=== PATIENT | female | born 1990 | race Caucasian/White ===

== ENCOUNTER 2016-05-01 19:40 | Emergency (ER) | payer OTHER ==
[~2016-05-01] VITALS: Ht 157.5 cm; Wt 72.1 kg
[~2016-05-01 19:40] MED LIST: IRON PO; PRENATAL1 EACH PO
[2016-05-02] MEDS ORDERED: PROGESTERONE200 MG PO (00:51)
[2016-05-02 01:05] VITALS: BP 110/71
== END 2016-05-02 01:06 | disposition home or self-care (01) ==
LOC: EME 19:40 → RME 19:40
DX: O20.0 Threatened abortion (principal); O99.331 Smoking (tobacco) complicating pregnancy, first trimester; F17.200 Nicotine dependence, unspecified, uncomplicated; Z3A.01 Less than 8 weeks gestation of pregnancy
CPT/HCPCS: 76801; 84702; 99281; 99283

== ENCOUNTER 2016-06-15 13:20 | Emergency (ER) | payer OTHER ==
[~2016-06-15] VITALS: Ht 157.5 cm; Wt 72.2 kg
[~2016-06-15 13:20] MED LIST changes: +PROGESTERONE200 MG PO
[2016-06-15 13:44] VITALS: BP 96/75
[2016-06-15 14:24] LABS: ADD MIUA? YES; BILIRUBIN NEGATIVE; BLOOD SMALL; COLOR YELLOW ((YELLOW)); GLUCOSE (STRIP) NEGATIVE; KETONES NEGATIVE; LEUKOCYTES NEGATIVE; NITRITE NEGATIVE; PROTEIN (STRIP) NEGATIVE; SPECIFIC GRAVITY 1.013 (1.000-1.030); UROBILINOGEN 0.2 MG/DL (0.2-1.0)
[2016-06-15 14:38] LABS: HEMATOCRIT 35.6 % (36.0-46.0); MCH 30.6 PG (29.0-34.0); MCHC 34.8 G/DL (30.0-36.0); MCV 87.9 FL (83-99); MEAN PLAT.VOLUME 9.2 uM^3 (9.5-12.4); PLATELET COUNT 303 K/uL (156-360); RBC DIS.WIDTH-CV 13.2 % (11.8-14.6); RBC DIS.WIDTH-SD 41.3 % (39-53); RED BLOOD COUNT 4.05 M/uL (3.80-5.20)
[2016-06-15 14:51] LABS: CHLORIDE 104 mEq/L (99-109); POTASSIUM 4.1 mEq/L (3.7-5.4); SODIUM 135 mEq/L (136-147)
[2016-06-15 14:53] LABS: GLUCOSE 78 mg/dL (70-99)
[2016-06-15 14:54] LABS: ANION GAP 7 MEQ/L (2-14)
[2016-06-15 14:55] LABS: TOTAL BILIRUBIN 0.5 mg/dL (0.0-1.0)
[2016-06-15 14:56] LABS: ALKALINE PHOSPHATASE 46 IU/L (3-129)
[2016-06-15 14:57] LABS: GFR ESTIMATE (CALCULATED) > 59 mL/min/
[2016-06-15 14:58] LABS: UREA NITROGEN (BUN) 8 mg/dL (9-23)
[2016-06-15 15:15] LABS: RED BLOOD CELLS RARE /HPF (0-5)
[2016-06-15 15:16] LABS: AMORPHOUS PHOSPHATE CRYSTALS 2+; BACTERIA 1+ /HPF; CRYSTALS PRESENT; EPITHELIAL CELLS RARE /HPF; MUCUS NONE SEEN /LPF; UCUL ADDED? NO; WHITE BLOOD CELLS NONE SEEN /HPF (0-5)
[2016-06-15] MEDS ORDERED: ZOFRAN4 MG PO (15:16)
[2016-06-15 15:19] LABS: QUANTITATIVE HCG 52836.8 MIU/ML
[2016-06-15 15:37] LABS: LIPASE 16 U/L (1.0-51.0)
== END 2016-06-15 15:41 | disposition home or self-care (01) ==
LOC: EME 13:20
DX: O21.9 Vomiting of pregnancy, unspecified (principal); R11.0 Nausea; E86.0 Dehydration; Z3A.13 13 weeks gestation of pregnancy; F17.200 Nicotine dependence, unspecified, uncomplicated
CPT/HCPCS: 80053; 81003; 83690; 84702; 85027; 99281; 99284